=== PATIENT | female | born 1995 | race Caucasian/White ===

== ENCOUNTER → 2020-05-10 | Outpatient (CLI) | payer BC, MEDICAID ==
[~2020-05-10] MED LIST: ACET325T38 PO; CALC500T7 PO; DOCU100C37 PO; FERR-54 PO; IBUP-1773 PO; PREN-148 PO
--- NOTE | 2020-05-10 15:34 | Diagnostic Imaging Report ---
CLINICAL INDICATIONS: Patient with dizziness spells, headaches and syncope. EXAM: MRI of the brain performed without IV contrast. Sequences include axial DWI, ADC map, axial T2, axial FLAIR, axial T1, axial gradient echo, and sagittal T1. COMPARISON: Head CT without contrast dated 07/21/2013.. FINDINGS: There is no evidence of acute cerebral infarct, intracranial hemorrhage, or gross mass effect. The brain parenchymal volume appears appropriate for patient's age. There is normal escoto-white matter distinction. There is no significant midline shift or herniation. The skull [place] vascular structures show no gross abnormality as visualized. The pituitary gland, sella, and suprasellar regions are unremarkable as visualized. There is no evidence of hydrocephalus. The basal cisterns are unremarkable. The skull, extracranial soft tissue, and orbits are unremarkable. There is minimal mucosal thickening involving the right maxillary sinus. Temporal bones show no significant abnormality. IMPRESSION: Minimal right maxillary sinus disease. Otherwise, unremarkable MRI of the brain. Dictated by: Dictated on workstation # [id number]
== END ==
LOC: RAD 13:34
PROVIDERS: ATTEND Internal Medicine
DX: J32.0 Chronic maxillary sinusitis (principal); R42 Dizziness and giddiness; R55 Syncope and collapse
CPT/HCPCS: 70551

== ENCOUNTER → 2020-08-30 | Outpatient (CLI) | payer BC ==
--- NOTE | 2020-08-30 09:23 | Diagnostic Imaging Report ---
PROCEDURE: CT head without contrast. TECHNIQUE: Multiple contiguous axial images were obtained through the brain without the use of intravenous contrast. Auto Exposure Controls were utilized during the CT exam to meet ALARA standards for radiation dose reduction. INDICATION: Head pain. COMPARISON: 07/21/2013. FINDINGS: The brain appears normal. There is no hemorrhage, hydrocephalus, edema, mass, mass effect, or evidence for an elevation of the intracerebral pressures. There is membrane thickening as well as air-fluid levels in the bilateral maxillary sinuses as well as membrane disease and opacification of multiple bilateral ethmoid air cells. The frontal sinuses are clear. The sphenoid sinuses show trace membrane thickening. The mastoids are clear. The middle ear cavities are normal. The orbital contents are unremarkable. IMPRESSION: 1. Findings of acute on chronic paranasal sinusitis. 2. Normal appearance of the brain. Dictated by: Dictated on workstation # [id number]
== END ==
LOC: RAD 08:56
PROVIDERS: ATTEND Pediatrics
DX: G93.2 Benign intracranial hypertension (principal); J32.9 Chronic sinusitis, unspecified
CPT/HCPCS: 70450

== ENCOUNTER 2020-09-06 08:49 | Day surgery (SDC) | payer BC ==
[2020-09-06 09:21] LABS: BASOPHILS # (AUTO) 0.1 10^3/uL (0.0-0.1); BASOPHILS % (AUTO) 1 % (0-10); EOSINOPHILS # (AUTO) 0.1 10^3/uL (0.0-0.3); EOSINOPHILS % (AUTO) 2 % (0-10); HEMATOCRIT 38 % (35-52); HEMOGLOBIN 12.6 g/dL (11.5-16.0); LYMPHOCYTES # (AUTO) 1.8 10^3/uL (1.0-4.0); LYMPHOCYTES % (AUTO) 26 % (12-44); MEAN CORPUSCULAR HEMOGLOBIN 29 pg (25-34); MEAN CORPUSCULAR HGB CONC 33 g/dL (32-36); MEAN CORPUSCULAR VOLUME 87 fL (80-99); MEAN PLATELET VOLUME 9.6 fL (9.0-12.2); MONOCYTES # (AUTO) 0.6 10^3/uL (0.0-1.0); MONOCYTES % (AUTO) 8 % (0-12); NEUTROPHILS # (AUTO) 4.2 10^3/uL (1.8-7.8); NEUTROPHILS % (AUTO) 62 % (42-75); PLATELET COUNT 344 10^3/uL (130-400); WHITE BLOOD COUNT 6.8 10^3/uL (4.3-11.0)
[2020-09-06 10:40] VITALS: BP 116/79
[2020-09-06 11:38] LABS: APPEARANCE,CSF CLEAR; COLOR,CSF COLORLESS; RED BLOOD CELL,CSF 1 CELLS (0-0); WHITE BLOOD CELL,CSF 1 CELLS (0-5)
[2020-09-06 11:39] LABS: CSF TUBE NUMBER 4
[2020-09-06 11:49] LABS: CSF GLUCOSE 59 MG/DL (50-80); CSF TOTAL PROTEIN 20 MG/DL (15-40)
--- NOTE | 2020-09-06 13:52 | Anesthesia-Procedure Note ---
Procedures/Interventions Procedure Start/Stop/Diagnosis Date of Procedure: Sep 06, 2020 Start Time: 10:06 Referring Physician: Dr Sally Collier Brief History Patient was admitted as an outpatient for a lumbar puncture. CT of head negative from last week and platelet count WNL. Orders received for opening pressure and labs for CSF per Dr Sally Collier from [facility]. Procedure and risks explained to the patient and consent signed. Patient in left lateral position, sterile prepped and draped. Localized with 3cc 1% Lido at L4-L5. 25g Pencan 3.5 inch needle used to locate CSF, which took approximately 10 minutes, redirecting as needed due to patient discomfort. CSF opening pressure was 14.5 cm H2O and it was noted to be clear. 2.5-3 cc of CSF obtained in each of 4 vials over approximately 20 minutes. Bogue removed and Bandaid applied covering site. Patient was repositioned supine and made comfortable. Drink was provided. Reported off to CARIDAD Novak with discharge instructions. Stop Time: 10:35 Lumbar Puncture Discussed Risk,Benefits: Yes Patient Consents: Yes Position: L4-5, Left Sterile Technique: Yes Opening Pressure: 14 cm H2O Fluid Color: clear Spinal Needle Used: Other (25 g Pencan 3 1/2 inch) VONDA DAY CRNA Sep 06, 2020 13:52
== END 2020-09-06 11:14 | disposition home or self-care (01) ==
LOC: SDC 08:49
PROVIDERS: ATTEND Anesthesiology
DX: G93.2 Benign intracranial hypertension (principal)
CPT/HCPCS: 36415; 82945; 84157; 85025; 87070; 87205; 89051